=== PATIENT | male | born 1960 | race Caucasian/White ===

== ENCOUNTER → 2019-10-17 09:23 | Outpatient (CLI) | payer MEDICARE, MEDICAID, SELFPAY ==
--- NOTE | 2019-10-17 09:34 | EKG12_ITS ---
Test Reason : PRE OP Blood Pressure : / mmHG Vent. Rate : 054 BPM Atrial Rate : 042 BPM P-R Int : 000 ms QRS Dur : 100 ms QT Int : 466 ms P-R-T Axes : 000 072 056 degrees QTc Int : 441 ms Sinus rhythm Nonspecific ST and T wave abnormality Abnormal ECG Confirmed by KOKO COY, CHEYANNE ([id number]), editor city TORI CARLTON ([id number] on 10/18/2019 10:28:48 AM Referred By: Donell Chavez Confirmed By:RODGER SUTHERLAND MD
== END ==
PROVIDERS: Family Provider Family Medicine; PCP Family Medicine; Referring Provider Otolaryngology; Visit Provider Otolaryngology
DX: C44.212 Basal cell carcinoma of skin of right ear and external auricular canal (principal)
CPT/HCPCS: 93005

== ENCOUNTER → 2023-03-23 | Outpatient (CLI) | payer MEDICARE, MEDICAID, SELFPAY | END | disposition home or self-care (01) | LOC: LAB 03-29 13:08 | PROVIDERS: PCP Family Medicine; Referring Provider Internal Medicine Hematology & Oncology; Visit Provider Internal Medicine Hematology & Oncology | DX: D64.9 Anemia, unspecified (principal) | CPT/HCPCS: 86850; 86900; 86901; 86920; 86922 ==

== ENCOUNTER 2023-10-07 17:13 | Inpatient (IN) | payer MEDICARE, MEDICAID, SELFPAY ==
[2023-10-07 17:15] VITALS: BP 150/59; PULSE 60; RESP 16; TEMP 36.6; O2SAT 100; BMI 21.1
--- NOTE | 2023-10-07 17:54 | EX.ED.DYSGE1 ---
HPI History of Present Illness Chief Complaint: Weakness Informant: patient Onset/Context/Timing Onset: Days Context: Gradual Onset Timing: Continuous Quality: Weakness Location: Generalized Worsened by: Nothing Relieved by: Nothing Narrative Narrative: Presents with generalized weakness that has been getting worse over the past few days. 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 Patient has had 2 doses of radiation treatment. The second dose was just a few days ago. Patient states he has not been wanting to eat or drink since that time. Patient admits to some pain in his neck and back. Patient states he feels weak all over. Patient denies any nausea or vomiting. Patient denies any fevers or chills. Patient denies any chest pain or shortness of breath. [facility] Medical History (Updated 10/07/23 @ 19:[address] Santos Dela Cruz DO) Colon cancer Prostate cancer Home Medications cholecalciferol (vitamin D3) 50 mcg (2,000 unit) capsule 50 mcg PO DAILY 10/07/23 [History Last Taken 10/07/23] gabapentin 300 mg capsule 900 mg PO DAILY 10/07/23 [History Last Taken 10/06/23] omeprazole 20 mg capsule,delayed release 20 mg PO DAILY 10/07/23 [History Last Taken Unknown] ondansetron 8 mg disintegrating tablet 8 mg PO Q12H PRN nausea 10/07/23 [History Last Taken Unknown] rosuvastatin 20 mg tablet 20 mg PO QHS 10/07/23 [History Last Taken 10/06/23] vibegron 75 mg tablet (Gemtesa) 75 mg PO QHS 10/07/23 [History Last Taken Unknown] Allergy/AdvReac Type Severity Reaction Status Date / Time codeine Allergy Mild Vomiting Verified 10/07/23 17:14 Surgical History no surgical history no surgical history Social History Smoking Status: Former smoker ROS ROS ED Constitutional Constitutional ED: Denies chills or fever(s) Eyes Eyes: Denies blurry vision or change in vision ENT ENT ED: Denies rhinorrhea or sore throat Cardiovascular Cardiovascular: Denies chest pain or palpitations Respiratory/Chest Respiratory/Chest: Denies cough or dyspnea Gastrointestinal Gastrointestinal: Denies nausea or vomiting Genitourinary Genitourinary ED: Denies dysuria or hematuria Musculoskeletal Musculoskeletal: Reports back pain and neck pain Integumentary Denies abscess or rash Neurologic Neurologic: Reports weakness; Denies headache(s) Allergic/Immunologic Allergic/Immunologic ED: Denies mouth swelling or urticaria EXAM Physical Exam Const Vital Signs: 10/07/23 17:15 10/07/23 17:18 Temperature 97.9 F Temperature Source Temporal Pulse Rate 60 Respiratory Rate 16 Respiratory Effort Normal Non-Labored Respiratory Pattern Normal Blood Pressure 150/59 H Blood Pressure Mean 89 Pulse Ox 100 Oxygen Delivery Method Room Air Positive well developed General Appearance ED: well developed and NAD HEENT Reports dry mucous membranes Mouth ED: Yes dry mucous membranes Mouth: dry mucous membranes Neck supple and no JVD Resp normal respiratory effort and clear to auscultation bilaterally Cardio regular rate and regular rhythm GI non-tender and non-distended Palpation: soft Extremity General Extremety ED: Negative for edema or tenderness General Extremity: Negative for edema Neuro oriented x3, CN's II-XII intact bilaterally and no sensory deficits noted Sensorium / Orientation: alert Motor Exam: strength 5/5 throughout Psych mental status grossly normal MDM MDM MDM Narrative Medical decision making narrative: Differential diagnosis includes dehydration, electrolyte abnormality, radiation side effect, anemia, and infection. Chest x-ray will be obtained to assess for pneumonia and pneumothorax. EKG will be obtained to assess for cardiac dysrhythmia and cardiac ischemia. CBC will be obtained to assess for leukocytosis and anemia. Basic metabolic profile will be obtained to assess for electrolyte abnormality and renal function. High-sensitivity troponin will be obtained to assess for cardiac ischemia. Urinalysis will be obtained to assess for urinary tract infection. COVID-19 rapid antigen will be obtained to assess for COVID-19 infection. Influenza A and influenza B antigens will be obtained to assess for influenza infection. Lab Data Attestation: I reviewed the patient's lab results. Lab results narrative: CBC was reviewed. White blood cell count was 1.9. Hemoglobin was 7.7 and hematocrit was 24.4. Platelets were 48. PT with INR and PTT were reviewed. Pro time was 17.3 and INR is 1.4. PTT was 42.9. Basic metabolic profile was reviewed. Sodium was 147 and chloride was 126. CO2 was low at 17. BUN was 33 and creatinine was 1.79. Lactate was reviewed and was normal at 1.4. High-sensitivity troponin was reviewed and was normal at 15. Urinalysis was reviewed. Leukocyte esterase was 500 with greater than 100 white blood cells and 2+ bacteria. COVID-19 rapid antigen was reviewed and was negative. Influenza A and influenza B antigens were reviewed and were negative. Labs: Laboratory Results - last 24 hr 10/07/23 10/07/23 18:10 18:25 WBC 1.9 L RBC 2.39 L Hgb 7.7 L Hct 24.4 L MCV 102.1 H MCH 32.2 H MCHC 31.6 L RDW Std Deviation 61.6 H RDW Coeff of Carlos 16.8 H Plt Count 48 L* MPV 11.2 Immature Gran % (Auto) 1.100 H Neut % (Auto) 44.1 L Lymph % (Auto) 39.4 [place] % (Auto) 15.4 H Eos % (Auto) 0.0 Baso % (Auto) 0.0 Absolute Neuts (auto) 0.8 L Absolute Lymphs (auto) 0.74 L Nucleated RBC % 1.1 Differential Comment SCANNED Diff Path Review February foll Platelet Estimate MKD SEP PT 17.3 H INR 1.4 APTT 42.9 H Sodium 147 H Potassium 3.7 Chloride 126 H Carbon Dioxide 17.0 L Anion Gap 4 L BUN 33 H Creatinine 1.79 H Estim Creat Clear Calc 38.27 Est GFR (MDRD) Af Amer 49 L Est GFR (MDRD) Non-Af 41 L BUN/Creatinine Ratio 18.4 Glucose 142 H Lactic Acid 1.4 Calcium 8.1 L Troponin I High Sens 15 Urine Color Yellow Urine Clarity Clear Urine pH 6.0 Ur Specific [place] 1.015 Urine Protein 100 H Urine Glucose (UA) Normal Urine Ketones Negative Urine Occult Blood 150 H Urine Nitrite Negative Urine Bilirubin Negative Urine Urobilinogen 4 H Ur Leukocyte Esterase 500 H Urine RBC 0 SEEN Urine WBC >100 SEEN Ur Squamous Epith Cells 0 SEEN Urine Bacteria 2+ Urine Mucus 0 SEEN Radiography Diagnostic Testing: Clinical Impression(s) from Imaging Studies Chest X-Ray 10/07/23 18:31 IMPRESSION: Normal x-ray examination of the chest. Electronically Signed: Keith Ceja MD at 19:03 EST , Portable 1 view chest x-ray was obtained. On my independent interpretation, lung lazcano are clear. There is normal cardiac silhouette. Bony thorax is normal. There is no acute process noted. Radiologist also interpreted the x-ray and agrees. EKG Initial EKG: Attestation: I personally reviewed and interpreted this EKG as follows: Interpretation: Sinus Rhythm (With first-degree AV block with a rate of 66) Comments: EKG was obtained. On my independent interpretation, it shows normal sinus rhythm with first-degree AV block with a rate of 66. UT interval was prolonged at approximately 240 ms. QRS interval was within normal limits. QTc interval was within normal limits. [place] was normal. There are nonspecific ST-T wave changes noted in leads V2 and V3. Prior EKG tracings: available for review Prior: Unchanged (10/17/2019) Treatment and Re-Evaluation :: Patient was given IV fluids. Blood cultures were obtained. Urine culture was obtained. Patient was started on Zosyn. Case was discussed with the hospitalist. She will admit the patient to her service. Patient and family understood and were agreeable with the plan. All questions were answered. Discharge Plan Dx/Rx/DC Orders Clinical Impression: Complicated urinary tract infection, Pancytopenia, Dehydration Disposition Disposition: Acute Care Hospital [facility]
--- NOTE | 2023-10-07 18:00 | EKG12_ITS ---
Test Reason : Blood Pressure : / mmHG Vent. Rate : 066 BPM Atrial Rate : 000 BPM P-R Int : 000 ms QRS Dur : 082 ms QT Int : 436 ms P-R-T Axes : 000 048 -69 degrees QTc Int : 457 ms Accelerated Junctional rhythm ST & T wave abnormality, consider anterior ischemia Abnormal ECG Confirmed by BANDAR COY, MARJAN ([id number]), metropolitan editor AMI VILLEGAS ([id number]) on 10/09/2023 1:18:53 PM Referred By: Confirmed By:MARJAN PORTILLO MD
[2023-10-07] MEDS: Ondansetron 4 MG/2 ML Vial IV (18:18)
[2023-10-07] MEDS: 0.9% Normal Saline (1000mL) 1,000 ML 1000 ML IV (18:18)
[2023-10-07 18:21] LABS: Absolute Lymphocyte Count 0.74 X10^3/uL (0.83-4.51); Absolute Neutrophil Count 0.8 X10^3/uL (2.0-7.7); Hematocrit 24.4 % (40-54); Hemoglobin 7.7 g/dL (13.0-16.5); Lymphocyte # 0.74 X10^3/ul (0.83-4.51); Lymphocyte % 39.4 % (19-41); Mean Corp Hgb Conc 31.6 g/dL (32-36); Mean Corpuscular Hgb 32.2 pg (27.0-32.0); Mean Corpuscular Volume 102.1 fL (80-94); Mean Platelet Vol. 11.2 fl (6.2-12.0); Monocyte# 0.29 X10^3/uL; Monocyte% 15.4 % (0-10); NRBC Flagged by Analyzer 1.1 % (0-5); Neutrophil # 0.83 X10^3/uL (2.7-7.7); Neutrophil % 44.1 % (47-70); POSITIVE COUNT YES; POSITIVE DIFFERENTIAL YES; RBC Distribution Width CV 16.8 % (11.6-14.6); RBC Distribution Width SD 61.6 fl (35.1-43.9); Red Blood Count 2.39 M/mm3 (4.6-6.2); White Blood Count 1.9 K/mm3 (4.4-11.0)
[2023-10-07 18:27] LABS: International Normalized Ratio 1.4; Prothrombin Time (Protime)PT. 17.3 SECONDS (11.7-14.9)
[2023-10-07 18:28] LABS: Partial Thromboplast Time 42.9 Seconds (24.1-36.2)
[2023-10-07 18:29] LABS: Differential Indicated SCAN CRITERIA MET; Platelet Count 48 K/mm3 (150-450)
--- NOTE | 2023-10-07 18:31 | RAD_ITS ---
STUDY: X-RAY CHEST REASON FOR EXAM: Male, 63 years old. Weakness TECHNIQUE: Single AP portable view of the chest. COMPARISON: None. FINDINGS: The lungs are clear and expanded. There is no demonstrated pleural abnormality. Normal size heart. Normal mediastinum and twila. Normal visualized pulmonary arteries. Normal visualized aortic arch and descending thoracic aorta. Normal visualized thoracic spine. Normal visualized ribs, clavicles, and shoulders. There is no demonstrated abnormality of the visualized soft tissue structures of the upper abdomen. RAD/Chest 1 View (Portable) IMPRESSION: Normal x-ray examination of the chest. Electronically Signed: Keith Ceja MD at 19:03 EST ,
[2023-10-07 18:35] LABS: Mucous, Urine 0 SEEN /hpf (<or=2+); Red Blood Cells-Urine 0 SEEN /hpf (0-5); Squamous Epithelial Cells - UA 0 SEEN /hpf (0-5)
[2023-10-07 18:40] LABS: Color, Urine Yellow (Yellow); Glucose, Dipstick Normal (Normal); Ketone-Dipstick Negative (Negative); Leukocyte Esterase-Dipstick 500 /ul (Negative); Nitrite-Dipstick Negative (Negative); Occult Blood-Urine 150 /ul (Negative); Protein-Dipstick 100 mg/dl (Negative); Specific Gravity, Urine 1.015 (1.002-1.030); Urine Bilirubin Dipstick Negative (Negative); Urine Clarity Clear (Clear); Urine Urobilinogen 4 mg/dl (Normal)
[2023-10-07 18:42] LABS: Anion Gap 4 (5-15); BUN 33 mg/dL (7-18); BUN/Creat Ratio 18.4 RATIO (10-20); Calcium,Total 8.1 mg/dL (8.5-10.1); Chloride 126 mmol/L (98-107); Creatinine, Serum 1.79 mg/dL (0.70-1.30); EST Glomerular Filtration Rate 41 mL/min (>60); Est Glom Filt Rate - Afr Amer 49 mL/min (>60); Estimated Creatinine Clearance 38.27 ml/min; Glucose 142 mg/dL (74-106); Lactic Acid 1.4 mmol/L (0.4-1.9); Potassium 3.7 mmol/L (3.5-5.1); Sodium Level 147 mmol/L (136-145); Troponin-I HS 15 pg/mL (3.0-78.0)
[2023-10-07 18:47] LABS: Bacteria 2+ /hpf (None Seen); White Blood Cells >100 SEEN /hpf (0-5)
[2023-10-07 19:00] LABS: Differential Comment SCANNED; Platelet Estimate MKD DEC (ADEQ)
[2023-10-07 19:36] VITALS: BP 138/68; PULSE 63; RESP 15; O2SAT 99
[2023-10-07 19:37] VITALS: BP 138/68; PULSE 62; RESP 17; O2SAT 99
--- NOTE | 2023-10-07 20:01 | HP.PCM.HOS_ITS ---
HPI - General General Date of Admission: 10/07/23 Date of Service: 10/07/23 Chief Complaint: Fatigue, weakness. HPI Narrative The patient is a 63 y/o M w/ PMHx: GERD, HLD, Severe protein calorie malnutrition, IDDM with device in place, Hx Colon CA remote s/p chemotherapy, Stage IV metastatic Prostate CA to bone currently on targeted radiation per patient/family report noted to have failed chemotherapy with associated chronic pancytopenia who presents to the [facility] ED on 10/09/23 with history of significant fatigue and malaise worsening over the past 3 days with very poor minimal intake over the last 3 days with reportedly his second dose in his radiation treatments just prior to onset of the symptoms with some generalized discomfort and malaise as well as myalgias with no fever or chills nor any nausea or emesis nor chest pain, cough or dyspnea but given severity of weakness prompted family to bring him in for evaluation. He does state that he has been having significantly foul-smelling urine but no specific dysuria. Workup in the ED included T97.9, heart rate 60, BP 150/59, respiratory rate 16, 100% on room air, CBC with WBC 1.9, hemoglobin 7.7, MCV 102.1, platelet 48 with increased immature granulocytes with ANC 0.8 and lymphopenia concurrently, coags with PT 17.3, INR 1.4, PTT 42.9, BMP with sodium 147, chloride 126, carbon oxide 17, AG 4, BUN/creatinine 33/1.79, glucose 142, lactic acid 1.4, troponin 15, urinalysis with specific remedy 1.015, protein 100, negative ketone, occult blood 150, negative nitrite however leukocyte Estrace 500 with greater than 100 urine RBCs with 2+ urine bacteria, chest x-ray with no acute cardiopulmonary findings, SARS COVID and influenza antigen negative. In the ED patient ministered 1 L normal saline, Zofran 4 mg IV x 1, Zosyn 4.5 g IV x 1. Outside records w/ noted 09/15/2023 CBC with WBC 4.67, hemoglobin 10.6, MCV 99.4, platelets 78 with ANC appropriate at that time, 08/31/2023 CMP with BUN/creatinine 18/1.09 and GFR at that time 76, bilirubin 1.0, AST/ALT 49/18, alk phos 514, glucose 161. PFSH Medical History (Updated 10/07/23 @ 20:[address] Jelly Culp MD) CKD (chronic kidney disease), stage II Colon cancer GERD (gastroesophageal reflux disease) HLD (hyperlipidemia) IDDM (insulin dependent diabetes mellitus) Prostate cancer metastatic to bone Protein calorie malnutrition Home Medications cholecalciferol (vitamin D3) 50 mcg (2,000 unit) capsule 50 mcg PO DAILY 10/07/23 [History Last Taken 10/07/23] gabapentin 300 mg capsule 900 mg PO DAILY 10/07/23 [History Last Taken 10/06/23] omeprazole 20 mg capsule,delayed release 20 mg PO DAILY 10/07/23 [History Last Taken Unknown] ondansetron 8 mg disintegrating tablet 8 mg PO Q12H PRN nausea 10/07/23 [History Last Taken Unknown] rosuvastatin 20 mg tablet 20 mg PO QHS 10/07/23 [History Last Taken 10/06/23] vibegron 75 mg tablet (Gemtesa) 75 mg PO QHS 10/07/23 [History Last Taken Unknown] Allergy/AdvReac Type Severity Reaction Status Date / Time codeine Allergy Mild Vomiting Verified 10/07/23 17:14 Family History (Updated 10/07/23 @ 20:[address] Jelly Culp MD) Father Lung cancer Lymphoma Mother No problems noted. Surgical History (Updated 10/07/23 @ 20:[address] Jelly Culp MD) History of cataract surgery Surgical History no surgical history Social History (Updated 10/07/23 @ 20:[address] Jelly Culp MD) household members: other details: Lives with his mother. Smoking Status: Never smoker alcohol intake: never substance use type: does not use ROS ROS Narrative Admission Review of Systems: CONSTITUTIONAL: No weight loss, fever, chills, + weakness or fatigue. HEENT: Eyes: No visual loss, blurred vision, double vision or yellow sclerae. Ears, Nose, Throat: No hearing loss, sneezing, congestion, runny nose or sore throat. SKIN: + Very staged abrasions, ecchymoses. CARDIOVASCULAR: No chest pain, chest pressure or chest discomfort, palpitations, edema, orthopnea, syncopal events. RESPIRATORY: No shortness of breath, cough or sputum, wheezing, hemoptysis. GASTROINTESTINAL: + anorexia, nausea. No vomiting or diarrhea, abdominal pain, melena, BRBPR. GENITOURINARY: + Foul-smelling urine otherwise no dysuria, frequency, urgency or retention. NEUROLOGICAL: + Severe global weakness. No headache, dizziness, syncope, paral ysis, ataxia, numbness or tingling in the extremities, focal weakness, change in bowel or bladder control, seizure. MUSCULOSKELETAL: + muscle, back pain, joint pain or stiffness. HEMATOLOGIC: + anemia, easy bleeding/bruising. LYMPHATICS: No enlarged nodes. No history of splenectomy. PSYCHIATRIC: No history of depression or anxiety. ENDOCRINOLOGIC: No reports of sweating, cold or heat intolerance. No polyuria or polydipsia. ALLERGIES: No history of asthma, hives, eczema or rhinitis. Vital Signs Vital Signs Vital Signs: 10/07/23 17:15 10/07/23 17:18 10/07/23 19:36 Temperature 97.9 F Temperature Source Temporal Pulse Rate 60 63 Respiratory Rate 16 15 Respiratory Effort Normal Non-Labored Respiratory Pattern Normal Blood Pressure 150/59 H 138/68 H Blood Pressure Mean 89 91 Pulse Ox 100 99 Oxygen Delivery Method Room Air Room Air 10/07/23 19:37 Temperature Temperature Source Pulse Rate 62 Respiratory Rate 17 Respiratory Effort Respiratory Pattern Blood Pressure 138/68 H Blood Pressure Mean 91 Pulse Ox 99 Oxygen Delivery Method Weight Weight: 143 lb 1.28 oz Body Mass Index (BMI) 21.1 Physical Exam Narrative Physical Examination: General: Awake, alert, oriented x 3 and cooperative, seated upright in the ED bed, fatigued appearing. Skin: Normal color, normal turgor, no icterus, no cyanosis except for occasional staged ecchymoses, abrasions.. HEENT: AT/NC, EOMI, PERRLA, dry MM, no carotid bruits or JVD noted. Lungs: Diminished, greater bases, proper effort,, no rales, ronchi or wheezing. Heart: Regular rate and rhythm; no gallop, rub audible. Abdomen: Soft, NTTP, ND, hypoactive BS, no appreciated HSM. Extremities: No cyanosis, clubbing, or edema, obvious muscle and fat loss, deconditioned. Neurological: Patient awake, alert, oriented as noted, cognitive function appears baseline intact; pupils equally reactive to light and accommodation, cranial nerves grossly normal, moving all 4 extremities, no focal deficits, st rength severely globally decreased secondary to acute presentation and underlying comorbidities. Psychiatric: Affect appears flat, fatigued, no acute evidence of depressive or anxiety feelings. Results Lab / Micro Data 10/07/23 18:10 10/07/23 18:10 Labs: Laboratory Results - last 24 hr 10/07/23 18:10: WBC 1.9 L, RBC 2.39 L, Hgb 7.7 L, Hct 24.4 L, MCV 102.1 H, MCH 32.2 H, MCHC 31.6 L, RDW Std Deviation 61.6 H, RDW Coeff of Carlos 16.8 H, Plt Count 48 L*, MPV 11.2, Immature Gran % (Auto) 1.100 H, Neut % (Auto) 44.1 L, Lymph % (Auto) 39.4, [place] % (Auto) 15.4 H, Eos % (Auto) 0.0, Baso % (Auto) 0.0, Absolute Neuts (auto) 0.8 L, Absolute Lymphs (auto) 0.74 L, Nucleated RBC % 1.1, Differential Comment SCANNED, Diff Path Review February, Platelet Estimate MKD DEC, PT 17.3 H, INR 1.4, APTT 42.9 H, Sodium 147 H, Potassium 3.7, Chloride 126 H, Carbon Dioxide 17.0 L, Anion Gap 4 L, BUN 33 H, Creatinine 1.79 H, Estim Creat Clear Calc 38.27, Est GFR (MDRD) Af Amer 49 L, Est GFR (MDRD) Non-Af 41 L, BUN/Creatinine Ratio 18.4, Glucose 142 H, Lactic Acid 1.4, Calcium 8.1 L, Troponin I High Sens 15 10/07/23 18:25: Urine Color Yellow, Urine Clarity Clear, Urine pH 6.0, Ur Specific [place] 1.015, Urine Protein 100 H, Urine Glucose (UA) Normal, Urine Ketones Negative, Urine Occult Blood 150 H, Urine Nitrite Negative, Urine Bilirubin Negative, Urine Urobilinogen 4 H, Ur Leukocyte Esterase 500 H, Urine RBC 0 SEEN, Urine WBC >100 SEEN, Ur Squamous Epith Cells 0 SEEN, Urine Bacteria 2+, Urine Mucus 0 SEEN Micro: Microbiology 10/07/23 18:25 Nasal Secretion SARS-CoV-2 & FLU Antigen (Rapid) - Final Imagaing Radiology Impression Chest X-Ray 10/07/23 18:31 IMPRESSION: Normal x-ray examination of the chest. Electronically Signed: Keith Ceja MD at 19:03 EST , Assessment & Plan Assessment/Plan (1) Complicated urinary tract infection: PLAN: Plan The patient is a 63 y/o M w/ PMHx: GERD, HLD, Severe protein calorie malnutrition, IDDM with device in place, Hx Colon CA remote s/p chemotherapy, Stage IV metastatic Prostate CA to bone currently on targeted radiation per patient/family report noted to have failed chemotherapy with associated chronic pancytopenia who presents to the [facility] ED on 10/09/23 with history of significant fatigue and malaise worsening over the past 3 days with very poor minimal intake over the last 3 days with reportedly his second dose in his radiation treatments just prior to onset of the symptoms with some generalized discomfort and malaise as well as myalgias with no fever or chills nor any nausea or emesis nor chest pain, cough or dyspnea but given severity of weakness prompted family to bring him in for evaluation. #1. Acute Complicated Urinary Tract Infection: Will admit to medical surgical floor, UA upon ED evaluation remarkable, pending UCx, continue IVFs, monitor I/Os, continue IV Zosyn given significant neutropenia and no prior current urine cultures apparent w/ transition as able pending sensitivities and speciation. PT/OT/case management consulted for discharge planning. #2. Acute on chronic anemia, thrombocytopenia, presenting also with leukopenia with pancytopenia likely related with ongoing cancer intervention and underlying cancer process as noted #3: CBC upon presentation with WBC 1.9, hemoglobin 7.4, MCV 102.1 thus macrocytic however recently prior to this 09/15/2023 CBC with MCV at that time 99.4, hemoglobin 10.6, platelets 78 and normal ANC, currently ANC less than 1, will administer Granix and repeat CBC in AM. #3. JOY on Chronic Kidney Disease Stage II per [facility] record review GFR trending: Admission BUN/Cr 33/1.79, baseline renal function most recently prior appears 1.09 on 08/31/23, will hold nephrotoxic regimen, continue to hydrate and obtain CMP in AM. #4. Metastatic stage IV prostate cancer: Patient with significant metastatic disease reportedly to bone, following at the [facility] with recent transition given failure of chemotherapy to potentially some type of experimental radiation injection or dosing with next being the third supposed to occur on 10/19/2023, magnesium and phosphorus levels requested, encourage continued early follow-up and notification to oncology service including clinic main #5. Severe protein calorie malnutrition: Noted per significant muscle and fat loss obvious on evaluation, poor oral intake patterns per discussion with patient and family, nutrition consulted for education and supplementation recommendations. #6. IDDM: Clarifying patient's insulin device, will continue to closely monitor and utilize blood sugar checks if not consistent with hold if any concern for hypoglycemia. #7. History colon cancer: Noted to be remote history status post chemotherapy considered in remission per his report. #8. Hyperlipidemia: We will continue patient on statin therapy, CMP pending in a.m. with outside facility records with most recent noted CMP 08/31/2023 with bilirubin 1.0, ST/ALT 49/18, alk phos 514. #9. GERD: We will continue patient on PPI. #10. DVT prophylaxis: SCDs, defer chemoprophylaxis given current thrombocytopenia, worsened to be cautious. #11. CODE status: Patient HCPOA and living will are not in place but he notes his mother would be his decision maker if necessary. Discussed CODE status at length including difference between FULL code, DNR-CCA and DNR-CC status. Following discussions about the differences in these status, requested DNR-CCA, no intubation status. Advanced Care Planning Face to Face Time: 16 minutes. Charges/Coding Visit Charges Inpatient E&M: 32397 Init Hosp L3 Procedures Hospitalists Procedures: 83711 Advncd Care Plan 30 Min
[2023-10-07 20:13] LABS: Magnesium 2.1 mg/dL (1.6-2.6); Phosphorus 2.6 mg/dL (2.5-4.9)
[2023-10-07] MEDS: Piperacil/Tazobactam 4.5 GM in 0.9% Normal Saline (100mL MB+) 100 ML IV (20:14)
[2023-10-07 21:18] VITALS: BMI 20.1
[2023-10-07 21:33] VITALS: BP 136/63; PULSE 65; RESP 16; TEMP 36.8; O2SAT 99
[2023-10-07] MEDS: TBO-FILGRASTIM 480 MCG/0.8 ML ML SC (21:53)
[2023-10-07] MEDS: Menthol/Lanolin/Calamine/Znox 113 GM Tube 1 APPLIC TOPICAL (21:56)
[2023-10-07] MEDS: Vibegron 75 MG TABLET PO (21:57)
[2023-10-07] MEDS: 0.9% Normal Saline (1000mL) 1,000 ML 125 ML IV (22:06)
[2023-10-08 06:00] VITALS: BMI 20.2
[2023-10-08 06:27] LABS: Absolute Neutrophil Count 1.1 X10^3/uL (2.0-7.7); Basophil# 0.01 X10^3/uL; Basophil% 0.5 % (0-1); Hemoglobin 9.6 g/dL (13.0-16.5); Lymphocyte % 33.3 % (19-41); Mean Corpuscular Hgb 31.2 pg (27.0-32.0); Mean Corpuscular Volume 100.6 fL (80-94); Mean Platelet Vol. 11.2 fl (6.2-12.0); Monocyte# 0.27 X10^3/uL; Monocyte% 12.9 % (0-10); NRBC Flagged by Analyzer 0 % (0-5); Neutrophil # 1.09 X10^3/uL (2.7-7.7); Neutrophil % 51.9 % (47-70); POSITIVE COUNT YES; Platelet Count 57 K/mm3 (150-450); RBC Distribution Width SD 62.6 fl (35.1-43.9); Red Blood Count 3.08 M/mm3 (4.6-6.2); White Blood Count 2.1 K/mm3 (4.4-11.0)
[2023-10-08 06:51] LABS: ALB/GLOB Ratio 0.5 RATIO (0.9-2.4); AST(SGOT) 84 U/L (15-37); Alanine Aminotransfer ALT/SGPT 19 U/L (16-61); Albumin, Serum 2.5 g/dL (3.2-5.0); Alkaline Phosphatase 334 U/L (45-117); Anion Gap 2 (5-15); BUN 32 mg/dL (7-18); BUN/Creat Ratio 20.3 RATIO (10-20); Calcium,Total 8.5 mg/dL (8.5-10.1); Chloride 126 mmol/L (98-107); Creatinine, Serum 1.58 mg/dL (0.70-1.30); EST Glomerular Filtration Rate 47 mL/min (>60); Est Glom Filt Rate - Afr Amer 57 mL/min (>60); Estimated Creatinine Clearance 41.29 ml/min; Globulin 5.3 g/dL (2.2-4.2); Glucose 146 mg/dL (74-106); Protein, Total 7.8 g/dL (6.4-8.2); Sodium Level 148 mmol/L (136-145)
[2023-10-08 07:00] VITALS: BP 132/60; PULSE 63; RESP 20; TEMP 36.9; O2SAT 100
[2023-10-08] MEDS: Piperacil/Tazobactam 3.375 GM in 0.9% Normal Saline (50mL MB+) 50 ML IV ×3 (07:00→22:02)
[2023-10-08] MEDS: 0.9% Normal Saline (1000mL) 1,000 ML 125 ML IV ×3 (07:00→22:02)
[2023-10-08 07:30] LABS: Bedside Glucose 125 mg/dL (74-106)
[2023-10-08] MEDS: Gabapentin 300 MG Capsule 900 MG PO (08:50)
[2023-10-08] MEDS: Glucerna Shake 120 ML LIQUID PO ×2 (08:50→11:42)
[2023-10-08] MEDS: Pantoprazole Sodium 20 MG Tablet PO (08:55)
[2023-10-08 09:09] VITALS: BP 127/64; PULSE 71; RESP 16; TEMP 36.4; O2SAT 99
[2023-10-08 11:31] VITALS: BP 106/56; PULSE 70; RESP 16; TEMP 36.5; O2SAT 99
[2023-10-08 11:39] LABS: Bedside Glucose 144 mg/dL (74-106)
--- NOTE | 2023-10-08 14:07 | PCM.PN.HOSP ---
Reason for Visit Reason for Visit: Diagnoses Urinary tract infection, site not specified (10/07/23) Subjective Subjective Patient seen at bedside this morning. Sitting in bedside chair, appears very fatigued, answering questions appropriately but with fairly short responses, no acute distress. Patient appears chronically ill at baseline. States that today he feels about the same as yesterday. Has not eaten anything yet this morning. Denies any acute pain or discomfort at this time. No other acute concerns currently. Objective Data Objective Data Vital Signs: Vital Signs Temp Pulse Resp BP Pulse Ox O2 Del Method 97.7 F L 70 16 106/56 L 99 Room Air 10/08/23 11:31 10/08/23 11:31 10/08/23 11:31 10/08/23 11:31 10/08/23 11:31 10/08/23 13:33 Oxygen Delivery Method Room Air Weight: 61.8 kg Body Mass Index (BMI) 20.2 Intake & Output: Intake and Output for Last 24 Hours 10/06/23 10/07/23 10/08/23 23:59 23:59 23:59 Intake Total 1100 / 1100 1974 Output Total 1100 / 1100 Balance 1100 / 1100 875 / 875 Medical Nutrition Assessment Dietitian: Malnutrition Criteria Met Start: 10/08/23 12:24 Freq: Status: Active Protocol: Document 10/08/23 12:25 RMA (Rec: 10/08/23 12:25 RMA [id number]) Nutrition Malnutrition Evidence of Malnutrition Exists Yes Malnutrition (severe): Chronic Evidenced By Suboptimal Energy Intake ( Severe),Weight Loss (Severe), Physical Changes (Severe) Clinical Problem Chronic Disease or Condition Related Malnutrition Etiology Severe protein-calorie malnutrition in the context of chronic disease related to inadequate oral intake and increased energy expenditure Signs/Symptoms as evidenced by ~22% unintentional weight loss x past 1 year, PO meeting less than 50% estimated nutrition needs x 6-12 months, BMI 20.1 and severe muscle wasting/fat depletion in the face, orbital , temporal region and clavicle Status Active Problem Recommendation Dietitian Recommendations/Changes Will continue liberalized regular diet given signs/ symptoms of malnutrition. Will add 120mL strawberry ensure plus HP TID w/ meals. Will continue 120mL glucerna shake TID w/ medpass as ordered. Additional ONS as tolerated. Consider enteral nutrition support to limit continued energy and protein depletion. Lab / Micro Data 12/17/23 05:49 10/08/23 05:49 Labs: Laboratory Results - last 24 hr 10/07/23 18:10: WBC 1.9 L, RBC 2.39 L, Hgb 7.7 L, Hct 24.4 L, MCV 102.1 H, MCH 32.2 H, MCHC 31.6 L, RDW Std Deviation 61.6 H, RDW Coeff of Carlos 16.8 H, Plt Count 48 L*, MPV 11.2, Immature Gran % (Auto) 1.100 H, Neut % (Auto) 44.1 L, Lymph % (Auto) 39.4, [place] % (Auto) 15.4 H, Eos % (Auto) 0.0, Baso % (Auto) 0.0, Absolute Neuts (auto) 0.8 L, Absolute Lymphs (auto) 0.74 L, Nucleated RBC % 1.1, Differential Comment SCANNED, Diff Path Review February, Platelet Estimate MKD SEP, PT 17.3 H, INR 1.4, APTT 42.9 H, Sodium 147 H, Potassium 3.7, Chloride 126 H, Carbon Dioxide 17.0 L, Anion Gap 4 L, BUN 33 H, Creatinine 1.79 H, Estim Creat Clear Calc 38.27, Est GFR (MDRD) Af Amer 49 L, Est GFR (MDRD) Non-Af 41 L, BUN/Creatinine Ratio 18.4, Glucose 142 H, Lactic Acid 1.4, Calcium 8.1 L, Phosphorus 2.6, Magnesium 2.1, Troponin I High Sens 15 10/07/23 18:25: Urine Color Yellow, Urine Clarity Clear, Urine pH 6.0, Ur Specific [place] 1.015, Urine Protein 100 H, Urine Glucose (UA) Normal, Urine Ketones Negative, Urine Occult Blood 150 H, Urine Nitrite Negative, Urine Bilirubin Negative, Urine Urobilinogen 4 H, Ur Leukocyte Esterase 500 H, Urine RBC 0 SEEN, Urine WBC >100 SEEN, Ur Squamous Epith Cells 0 SEEN, Urine Bacteria 2+, Urine Mucus 0 SEEN 10/08/23 05:49: WBC 2.1 L, RBC 3.08 L, Hgb 9.6 L, Hct 31.0 L, MCV 100.6 H, MCH 31.2, MCHC 31.0 L, RDW Std Deviation 62.6 H, RDW Coeff of Carlos 17.0 H, Plt Count 57 L, MPV 11.2, Immature Gran % (Auto) 1.400 H, Neut % (Auto) 51.9, Lymph % (Auto) 33.3, [place] % (Auto) 12.9 H, Eos % (Auto) 0.0, Baso % (Auto) 0.5, Absolute Neuts (auto) 1.1 L, Absolute Lymphs (auto) 0.70 L, Nucleated RBC % 0, Sodium 148 H, Potassium 4.0, Chloride 126 H, Carbon Dioxide 20.0 L, Anion Gap 2 L, BUN 32 H, Creatinine 1.58 H, Estim Creat Clear Calc 41.29, Est GFR (MDRD) Af Amer 57 L, Est GFR (MDRD) Non-Af 47 L, BUN/Creatinine Ratio 20.3 H, Glucose 146 H, Calcium 8.5, Total Bilirubin 1.80 H, AST 84 H, ALT 19, Alkaline Phosphatase 334 H, Total Protein 7.8, Albumin 2.5 L, Globulin 5.3 H, Albumin/Globulin Ratio 0.5 L 10/08/23 06:48: POC Glucose 125 H 10/08/23 11:11: POC Glucose 144 H Micro: Microbiology 10/07/23 18:25 Nasal Secretion SARS-CoV-2 & FLU Antigen (Rapid) - Final Radiography Diagnostic Testing: Radiology Impression Chest X-Ray 10/07/23 18:31 IMPRESSION: Normal x-ray examination of the chest. Electronically Signed: Keith Ceja MD at 19:03 EST , Physical Exam Const alert, oriented x3 and no apparent distress Constitutional Narrative: Fatigued appearing, chronically ill-appearing, sitting comfortably in bedside chair, conversing normally, no acute distress. General Appearance: cooperative and comfortable HEENT normocephalic, head/scalp atraumatic, hearing grossly normal bilaterally, nasal mucous membranes and turbinates normal and moist oral mucous membranes Eyes PERRL, EOMs intact bilaterally and conjunctivae normal Neck full ROM, no lymphadenopathy and supple Lymph Lymphatic: no lymphadenopathy noted Chest inspection of chest normal Resp normal respiratory effort, normal air movement, no use of accessory muscles and clear to auscultation bilaterally Cardio regular rate, regular rhythm, no murmurs and peripheral pulses 2+ throughout GI normal to inspection, nondistended, normoactive bowel sounds, soft to palpation, non-tender and non-distended Back/Spine normal ROM Extremity normal to inspection, full ROM and no pedal edema Skin no rashes or lesions noted Neuro moves all extremities and no focal motor deficits Speech: speech normal Psych mental status grossly normal Assessment & Plan Assessment/Plan (1) Complicated urinary tract infection: (2) Pancytopenia: (3) Debility: PLAN: Plan Patient is a 63-year-old male who presented to [facility] ED on 10/07/2023 with worsening fatigue and malaise. 1. Acute complicated UTI Patient reported foul-smelling urine prior to admission, no dysuria. Denies history of urinary retention. UA on admit showed 500 leukocyte esterase, negative nitrates, greater than 100 WBCs, 2+ bacteria. Urine cultures, blood cultures pending. ? Continue IV Zosyn. Renal/bladder ultrasound ordered. Follow-up cultures. Monitor urine output. 2. Acute on chronic pancytopenia, improving Known history of pancytopenia secondary to previous chemotherapy. Last outpatient labs on 09/15/2023 showed hemoglobin 10.6, platelets 78, normal ANC. Hemoglobin 7.7, WBC 1.9, ANC less than 1, platelets 48 on admit. ? Given dose of Granix on admit. All cell counts improved on labs on 10/08. Continue to monitor daily labs closely. 3. JOY on CKD stage II, improving Per [facility] records, most recent creatinine 1.09 on 08/31/2023. Creatinine 1.79, BUN 33 on admit. Suspected prerenal in setting of poor p.o. intake due to infection. Cannot rule out postobstructive. S/p 1 L normal saline in the ED. ? Creatinine improving on 10/08. Renal ultrasound ordered as noted above. Monitor urine output. Avoid nephrotoxins. Encourage p.o. intake. 4. Metastatic stage IV prostate cancer, chronic pain Patient with significant metastatic disease reportedly to bone. Following at [facility]. Recently transitioned to some type of experimental radiation therapy after failing chemotherapy due to pancytopenia. Has received 2 doses of radiation, third dose planned for 10/19/2023. ? No need for oncology involvement here at this time. Encouraged close outpatient follow-up. 5. Severe protein calorie malnutrition Noted for significant muscle and fat loss obvious on evaluation, poor oral intake patterns per discussion with patient and family. ? Nutrition consulted. 6. Debility Secondary to metastatic cancer and acutely worsened given infection as noted above. ? PT/OT/case management consulted. Chronic medical conditions: ? Hyperlipidemia: Continue home statin. ? GERD: Continue home PPI. DVT prophylaxis: SCDs CODE STATUS: DNR CCA, DNI Expected disposition: TBD Total clinical time spent by myself addressing the patient's medical issues, reviewing all the data, and collaborating with patient's care team: 35 minutes. Charges/Coding Visit Charges Inpatient E&M: 17314 Subs Hosp L2
[2023-10-08 15:28] VITALS: BP 108/55; PULSE 63; RESP 16; TEMP 36.4; O2SAT 99
[2023-10-08 16:35] LABS: Bedside Glucose 137 mg/dL (74-106)
[2023-10-08] MEDS: Menthol/Lanolin/Calamine/Znox 113 GM Tube 1 APPLIC TOPICAL ×2 (17:44→22:08)
[2023-10-08 22:00] VITALS: BP 118/62; PULSE 64; RESP 16; TEMP 36.6; O2SAT 97
[2023-10-08] MEDS: Vibegron 75 MG TABLET PO (22:06)
[2023-10-08 22:27] LABS: Bedside Glucose 107 mg/dL (74-106)
[2023-10-09 02:38] VITALS: BP 123/62; PULSE 68; RESP 18; TEMP 37; O2SAT 96
[2023-10-09] MEDS: Piperacil/Tazobactam 3.375 GM in 0.9% Normal Saline (50mL MB+) 50 ML IV ×3 (04:33→20:38)
[2023-10-09] MEDS: 0.9% Normal Saline (1000mL) 1,000 ML 125 ML IV ×3 (04:33→20:38)
[2023-10-09 06:00] VITALS: BMI 20.6
--- NOTE | 2023-10-09 06:00 | US_ITS ---
STUDY: RENAL ULTRASOUND - COMPLETE REASON FOR EXAM: Male, 63 years old. Elevated BUN and creatinine TECHNIQUE: Ultrasound evaluation of the kidneys was performed with real-time and static ward-scale imaging. COMPARISON: None. FINDINGS: RIGHT KIDNEY: Normal location of the right kidney, which is normal in size. The right kidney measures 12.5 x 6.2 x 6.2 cm. There is a normal cortex of the right kidney. The renal cortex measures 1.2 cm. There is no right renal mass or cyst. There are no right renal calculi. There is no right hydronephrosis. DISTAL RIGHT URETER: There is non-visualization of the distal right ureter. There is no demonstrated right ureterovesical junction calculus. There is a visualized right ureteral jet. LEFT KIDNEY: Normal location of the left kidney, which is normal in size. The left kidney measures 12.0 x 5.6 x 6.3 cm. There is a normal cortex of the left kidney. The renal cortex measures 1.3 cm. There are 2 separate simple cysts both measuring 1.4 cm. There are no left renal calculi. There is no left hydronephrosis. DISTAL LEFT URETER: There is non-visualization of the distal left ureter. There is no demonstrated left ureterovesical junction calculus. There is a visualized left ureteral jet. AORTA: There is no elongation or tortuosity of the abdominal aorta. I.V.C.: The IVC is patent. BLADDER: The bladder distends normally but contains echogenic material suggesting proteinaceous debris, likely due to inflammation. Please correlate with UA. No significant postvoid residual noted US/Kidney and Bladder IMPRESSION: No obstructive uropathy or suspicious solid renal lesion Simple left renal cysts, no specific follow-up needed Echogenic debris within the bladder suggesting inflammation Electronically Signed: Sha Galdamez MD at 10:43 EST ,
[2023-10-09 06:04] LABS: Bedside Glucose 95 mg/dL (74-106)
--- NOTE | 2023-10-09 08:35 | PN.HOSP_ITS ---
Subjective Subjective Feeling okay. Feels tired. Objective Data Objective Data Vital Signs: Vital Signs Temp Pulse Resp BP Pulse Ox O2 Del Method 37.0 C 68 18 123/62 H 96 Room Air 10/09/23 02:38 10/09/23 02:38 10/09/23 02:38 10/09/23 02:38 10/09/23 02:38 10/09/23 08:32 Oxygen Delivery Method Room Air Weight: 63.2 kg Body Mass Index (BMI) 20.6 Intake & Output: Intake and Output for Last 24 Hours 10/07/23 10/08/23 10/09/23 23:59 23:59 23:59 Intake Total 1100 / 1100 3050 / 3050 864.58 / 864.58 Output Total 1600 / 1600 500 / 500 Balance 1100 / 1100 1450 / 1450 364.58 / 364.58 Medical Nutrition Assessment Dietitian: Malnutrition Criteria Met Start: 10/08/23 12:24 Freq: Status: Active Protocol: Document 10/08/23 12:25 RMA (Rec: 10/08/23 12:25 RMA [id number]) Nutrition Malnutrition Evidence of Malnutrition Exists Yes Malnutrition (severe): Chronic Evidenced By Suboptimal Energy Intake ( Severe),Weight Loss (Severe), Physical Changes (Severe) Clinical Problem Chronic Disease or Condition Related Malnutrition Etiology Severe protein-calorie malnutrition in the context of chronic disease related to inadequate oral intake and increased energy expenditure Signs/Symptoms as evidenced by ~22% unintentional weight loss x past 1 year, PO meeting less than 50% estimated nutrition needs x 6-12 months, BMI 20.1 and severe muscle wasting/fat depletion in the face, orbital , temporal region and clavicle Status Active Problem Recommendation Dietitian Recommendations/Changes Will continue liberalized regular diet given signs/ symptoms of malnutrition. Will add 120mL strawberry ensure plus HP TID w/ meals. Will continue 120mL glucerna shake TID w/ medpass as ordered. Additional ONS as tolerated. Consider enteral nutrition support to limit continued energy and protein depletion. Lab / Micro Data 10/08/23 05:49 10/08/23 05:49 Labs: Laboratory Results - last 24 hr 10/08/23 11:11: POC Glucose 144 H 10/08/23 16:13: POC Glucose 137 H 10/08/23 22:05: POC Glucose 107 H 10/09/23 05:39: POC Glucose 95 Micro: Microbiology 10/07/23 18:25 Nasal Secretion SARS-CoV-2 & FLU Antigen (Rapid) - Final Physical Exam Const alert and no apparent distress Constitutional Narrative: listless. Resp normal respiratory effort, no retractions, no use of accessory muscles and clear to auscultation bilaterally Cardio regular rate, regular rhythm, S1 normal heart sound and S2 normal heart sound GI normal to inspection, nondistended, normoactive bowel sounds, soft to palpation, non-tender and non-distended Extremity normal to inspection Assessment & Plan Assessment/Plan (1) Complicated urinary tract infection: (2) Pancytopenia: (3) Debility: PLAN: Plan 1. Acute complicated UTI * UA on admit showed 500 leukocyte esterase, negative nitrates, greater than 100 WBCs, 2+ bacteria. Pt self catheterizes normally * Urine cultures showing presumptive E. coli, blood cultures pending. * Continue IV pip/tazo. Renal/bladder ultrasound ordered. Follow-up cultures. Monitor urine output. 2. Acute on chronic pancytopenia, improving * Known history of pancytopenia secondary to previous chemotherapy. Last outpatient labs on 09/15/2023 showed hemoglobin 10.6, platelets 78, normal ANC. Hemoglobin 7.7, WBC 1.9, ANC less than 1, platelets 48 on admit. * Given dose of Granix on admit. All cell counts improved on labs on 10/08. Continue to monitor daily labs closely. 3. JOY on CKD stage II, improving * Per [facility] records, most recent creatinine 1.09 on 08/31/2023. Creatinine 1.79, BUN 33 on admit. Suspected prerenal in setting of poor p.o. intake due to infection. Cannot rule out postobstructive. S/p 1 L normal saline in the ED. * Creatinine improving on 10/08. Renal ultrasound ordered as noted above. Monitor urine output. Avoid nephrotoxins. Encourage p.o. intake. 4. Metastatic stage IV prostate cancer, chronic pain * Patient with significant metastatic disease reportedly to bone. Following at [facility]. Recently transitioned to some type of experimental radiation therapy after failing chemotherapy due to pancytopenia. Has received 2 doses of radiation, third dose planned for 10/19/2023. * Follow up with oncology as outpt. 5. Severe protein calorie malnutrition * Noted for significant muscle and fat loss obvious on evaluation, poor oral intake patterns per discussion with patient and family. * Nutrition consulted. 6. Debility * Secondary to metastatic cancer and acutely worsened given infection as noted above. * PT/OT/case management consulted. Chronic medical conditions: ? Hyperlipidemia: Continue home statin. ? GERD: Continue home PPI. DVT prophylaxis: SCDs CODE STATUS: DNR CCA, DNI Expected disposition: TBD Charges/Coding Visit Charges Inpatient E&M: 21304 Subs Hosp L2
[2023-10-09] MEDS: Menthol/Lanolin/Calamine/Znox 113 GM Tube 1 APPLIC TOPICAL ×3 (10:25→20:40)
[2023-10-09] MEDS: Pantoprazole Sodium 20 MG Tablet PO (10:35)
[2023-10-09] MEDS: Senna/Docusate Sodium 1 Tablet 2 TABLET PO (10:35)
[2023-10-09] MEDS: Gabapentin 300 MG Capsule 900 MG PO (10:35)
[2023-10-09] MEDS: Glucerna Shake 120 ML LIQUID PO ×2 (10:37→14:43)
[2023-10-09 11:25] VITALS: BP 96/47; PULSE 72; RESP 16; TEMP 36.7; O2SAT 96
[2023-10-09 12:58] LABS: Bedside Glucose 114 mg/dL (74-106)
[2023-10-09 13:27] LABS: Pathologist Review Reviewed
[2023-10-09] MEDS: 0.9% Normal Saline (250mL Bag) 250 ML 15 ML IV (14:47)
[2023-10-09 14:59] VITALS: BP 124/52; PULSE 64; RESP 16; TEMP 36.6; O2SAT 97
--- NOTE | 2023-10-09 15:00 | CASEMGMT ---
GEOVANNI RUIZ Discharge Planning Assessment Face to Face with patient for initial transition planning/care coordination assessment. GEOVANNI RUIZ introduced self and role at [facility], pt voices understanding. Pt is A&Ox3 resting comfortably in bed and is calm. Care providers, pharmacy, and demographics verified. Admitting dx: UTI, FTT LACE Strata: 1 PCP: Dr. Josefa Rockwell in [place] Specialists:Dr. Daniele Mendoza - Oncology [facility] Preferred Pharmacy:[facility] Insurance: MCR A B, JORGE ALBERT[employer] Prescription Benefit: Yes LNOK: Kristin Hwang (Mother) Living Arrangements:Pt states living in a 2 story home with a stair lift. There is one step to enter the home. Pt lives at home with his mother and states that she helps out with ADL and IADLs. Transportation:Pt reports that his mother is able to drive him. DME:Pt reports using a walker and stair lift. Pt states grab bar, shower chair, and hand-held shower. Pt reports continuous glucose meter and having enough supplies. HHC/SNF: Pt states he has been to [facility] for rehab regarding his chemotherapy history. Pt states signing up for HHC but nobody ever showed up. Pt?s goal/plan: Pt goal is to increase PO intake and gain more strength prior to DC. Pt plans to return home with his mother and stay in his room on the second level of the house. Pt did express concern for his mothers ability to care for him due to her small stature but states wanting to return home. Discussed HHC options with patient and reports he is agreeable. Plan: To be determined. Will follow progress with therapy. Probable Home Health at discharge. Perfecto Stone RN, CM
--- NOTE | 2023-10-09 16:42 | CHAPLAIN ---
Type of Pastoral Visit ___ Initial Visit ___ Follow-up Visit ___ On-call Visit ___ General Patient Visit ___ Spiritual Assessment ___ Family Conference ___ Bereavement ___ Rapid Response ___ Code Blue ___ Other (describe below) Pastoral Care Referral From ___ Patient ___ Family ___ Nurse ___ Physician ___ Top Lift Nailer ___ Business Systems Analyst ___ Other (describe below) Sacrament/Intervention ___ Active listening ___ Anointing ___ Restorationist ___ Bereavement ___ Communion ___ Joann exploration ___ ___ Life review ___ Prayer ___ Reconciliation ___ Sacrament of Sick ___ Supportive presence ___ Wedding ___ Other (describe below) Pastoral Comments patient was sleeping and did not awaken when this obiee report developer entered room
[2023-10-09] MEDS: Vibegron 75 MG TABLET PO (20:40)
[2023-10-09 20:51] VITALS: BP 130/59; PULSE 65; RESP 16; TEMP 36.8; O2SAT 97
[2023-10-10 04:00] VITALS: BP 118/56; PULSE 70; RESP 16; TEMP 36.6; O2SAT 96
[2023-10-10] MEDS: 0.9% Normal Saline (1000mL) 1,000 ML 125 ML IV ×2 (04:40→12:42)
[2023-10-10 04:51] VITALS: BMI 22.1
[2023-10-10] MEDS: Piperacil/Tazobactam 3.375 GM in 0.9% Normal Saline (50mL MB+) 50 ML IV ×3 (05:54→21:56)
[2023-10-10 06:44] LABS: Hematocrit 26.5 % (40-54); Mean Corp Hgb Conc 30.2 g/dL (32-36); Mean Corpuscular Volume 102.7 fL (80-94); Mean Platelet Vol. 10.9 fl (6.2-12.0); POSITIVE COUNT YES; POSITIVE MORPHOLOGY YES; Platelet Count 55 K/mm3 (150-450); RBC Distribution Width CV 17.5 % (11.6-14.6); RBC Distribution Width SD 65.6 fl (35.1-43.9); Red Blood Count 2.58 M/mm3 (4.6-6.2); White Blood Count 2.6 K/mm3 (4.4-11.0)
[2023-10-10 07:17] LABS: Bedside Glucose 84 mg/dL (74-106)
--- NOTE | 2023-10-10 07:27 | PN.HOSP_ITS ---
Subjective Subjective Feels better. Objective Data Objective Data Vital Signs: Vital Signs Temp Pulse Resp BP Pulse Ox O2 Del Method 36.6 C 70 16 118/56 L 96 Room Air 10/10/23 04:00 10/10/23 04:00 10/10/23 04:00 10/10/23 04:00 10/10/23 04:00 10/10/23 04:00 Oxygen Delivery Method Room Air Weight: 67.7 kg Body Mass Index (BMI) 22.1 Intake & Output: Intake and Output for Last 24 Hours 10/08/23 10/09/23 10/10/23 23:59 23:59 23:59 Intake Total 3050 / 3050 3214.41 / 3214.41 1050 / 1050 Output Total 1600 / 1600 1400 / 1400 650 / 650 Balance 1450 / 1450 1814.41 / 1814.41 400 / 400 Medical Nutrition Assessment Dietitian: Malnutrition Criteria Met Start: 10/08/23 12:24 Freq: Status: Active Protocol: Document 10/08/23 12:25 RMA (Rec: 10/08/23 12:25 RMA [id number]) Nutrition Malnutrition Evidence of Malnutrition Exists Yes Malnutrition (severe): Chronic Evidenced By Suboptimal Energy Intake ( Severe),Weight Loss (Severe), Physical Changes (Severe) Clinical Problem Chronic Disease or Condition Related Malnutrition Etiology Severe protein-calorie malnutrition in the context of chronic disease related to inadequate oral intake and increased energy expenditure Signs/Symptoms as evidenced by ~22% unintentional weight loss x past 1 year, PO meeting less than 50% estimated nutrition needs x 6-12 months, BMI 20.1 and severe muscle wasting/fat depletion in the face, orbital , temporal region and clavicle Status Active Problem Recommendation Dietitian Recommendations/Changes Will continue liberalized regular diet given signs/ symptoms of malnutrition. Will add 120mL strawberry ensure plus HP TID w/ meals. Will continue 120mL glucerna shake TID w/ medpass as ordered. Additional ONS as tolerated. Consider enteral nutrition support to limit continued energy and protein depletion. Lab / Micro Data 10/10/23 05:56 10/10/23 05:56 Labs: Laboratory Results - last 24 hr 10/07/23 18:10: Diff Path Review Reviewed 10/09/23 12:32: POC Glucose 114 H 10/10/23 06:57: POC Glucose 84 Micro: Microbiology 10/07/23 20:03 Blood Culture (Wb) - Anticubital Right Blood Culture - Preliminary No growth in 48 hours. 10/07/23 20:03 Blood Culture (Wb) - Anticubital Left Blood Culture - Preliminary No growth in 48 hours. 10/08/23 Unknown Urine, Catheterized Urine Culture - Preliminary Presumptive E. coli 10/07/23 18:25 Nasal Secretion SARS-CoV-2 & FLU Antigen (Rapid) - Final Radiography Diagnostic Testing: Radiology Impression Renal Ultrasound 10/09/23 06:00 IMPRESSION: No obstructive uropathy or suspicious solid renal lesion Simple left renal cysts, no specific follow-up needed Echogenic debris within the bladder suggesting inflammation Electronically Signed: Sha Galdamez MD at 10:43 EST , Physical Exam Const alert and no apparent distress Resp normal respiratory effort, no retractions, no use of accessory muscles and clear to auscultation bilaterally Cardio regular rate, regular rhythm, S1 normal heart sound and S2 normal heart sound GI normal to inspection, nondistended, normoactive bowel sounds, soft to palpation, non-tender and non-distended Neuro Sensorium / Orientation: awake and alert Assessment & Plan Assessment/Plan (1) Complicated urinary tract infection: (2) Pancytopenia: (3) Debility: PLAN: Plan 1. Acute complicated UTI * UA on admit showed 500 leukocyte esterase, negative nitrates, greater than 100 WBCs, 2+ bacteria. Pt self catheterizes normally * Urine cultures showing presumptive E. coli resistant to ampicillin, intermedi ate to Unasyn ESBL negative. Will oil changer to ceftriaxone starting tomorrow., blood cultures pending. * Continue IV pip/tazo. Renal/bladder ultrasound ordered. Follow-up cultures. Monitor urine output. 2. Acute on chronic pancytopenia, improving * Known history of pancytopenia secondary to previous chemotherapy. Last outpatient labs on 09/15/2023 showed hemoglobin 10.6, platelets 78, normal ANC. Hemoglobin 7.7, WBC 1.9, ANC less than 1, platelets 48 on admit. * Given dose of Granix on admit. All cell counts improved on labs on 10/08. Continue to monitor daily labs closely. 3. JOY on CKD stage II, improving * Per [facility] records, most recent creatinine 1.09 on 08/31/2023. Creatinine 1.79, BUN 33 on admit. Suspected prerenal in setting of poor p.o. intake due to infection. Cannot rule out postobstructive. S/p 1 L normal saline in the ED. * Creatinine improving on 10/08. Renal ultrasound ordered as noted above. Monitor urine output. Avoid nephrotoxins. Encourage p.o. intake. 4. Metastatic stage IV prostate cancer, chronic pain * Patient with significant metastatic disease reportedly to bone. Following at [facility]. Recently transitioned to some type of experimental radiation therapy after failing chemotherapy due to pancytopenia. Has received 2 doses of radiation, third dose planned for 10/19/2023. * Follow up with oncology as outpt. 5. Severe protein calorie malnutrition * Noted for significant muscle and fat loss obvious on evaluation, poor oral intake patterns per discussion with patient and family. * Nutrition consulted. 6. Debility * Secondary to metastatic cancer and acutely worsened given infection as noted above. * PT/OT/case management consulted. 7. Hypernatremia * DC normal saline IV fluids. * Change to D5W. Chronic medical conditions: ? Hyperlipidemia: Continue home statin. ? GERD: Continue home PPI. DVT prophylaxis: SCDs CODE STATUS: DNR CCA, DNI Expected disposition: Given debility, planning on SNF. Charges/Coding Visit Charges Inpatient E&M: 45685 Subs Hosp L2
[2023-10-10 07:36] LABS: Anion Gap 3 (5-15); BUN 24 mg/dL (7-18); BUN/Creat Ratio 23.5 RATIO (10-20); Calcium,Total 8.6 mg/dL (8.5-10.1); Chloride 134 mmol/L (98-107); Creatinine, Serum 1.02 mg/dL (0.70-1.30); EST Glomerular Filtration Rate 78 mL/min (>60); Est Glom Filt Rate - Afr Amer 95 mL/min (>60); Estimated Creatinine Clearance 70.06 ml/min; Glucose 91 mg/dL (74-106); Potassium 3.3 mmol/L (3.5-5.1); Sodium Level 154 mmol/L (136-145)
[2023-10-10 07:50] LABS: Differential Indicated MANUAL DIFF
[2023-10-10 07:58] LABS: Lymphocyte 33 % (19-41); Monocyte 14 % (0-10); Neutrophil-Band 5 % (0-5); Neutrophil-Segmented 48 % (47-70); Total Cells Counted 100 (MANUAL DIFF)
[2023-10-10 07:59] LABS: Absolute Lymphocyte Count 0.84 X10^3/uL (0.83-4.51); Absolute Neutrophil Count 1.4 X10^3/uL (2.0-7.7); Lymphocyte # 0.84 X10^3/ul (0.83-4.51); Neutrophil # 1.35 X10^3/uL (2.7-7.7)
[2023-10-10 08:00] LABS: Anisocytosis 2+; Macrocytosis 1+; Platelet Estimate MOD DEC (ADEQ)
[2023-10-10 09:15] VITALS: O2SAT 94
--- NOTE | 2023-10-10 10:14 | CASEMGMT ---
Discharge Planning A list of?SNF providers including quality and resource use data and consistent with the patient's preferred geographic region, medical needs, and insurance network was created in [employer] Guide.? This list was provided to the SW. Claudia Michael Discharge Planning Asst.
[2023-10-10] MEDS: Glucerna Shake 120 ML LIQUID PO ×3 (11:05→17:35)
[2023-10-10] MEDS: Gabapentin 300 MG Capsule 900 MG PO (11:05)
[2023-10-10] MEDS: Menthol/Lanolin/Calamine/Znox 113 GM Tube 1 APPLIC TOPICAL ×4 (11:05→21:56)
[2023-10-10] MEDS: Pantoprazole Sodium 20 MG Tablet PO (11:09)
[2023-10-10 11:32] VITALS: BP 144/67; PULSE 55; RESP 16; TEMP 36.4; O2SAT 100
[2023-10-10 12:25] LABS: Bedside Glucose 92 mg/dL (74-106)
[2023-10-10] MEDS: Dextrose 5%-Water (1000mL Bag) 1,000 ML 75 ML IV (14:25)
--- NOTE | 2023-10-10 15:30 | CASEMGMT ---
Social Work Reviewed therapy notes, noted that patient needing assist and not moving very far with therapy. Met with patient to discuss discharge planning, acknowledging patient's preference to return home but concerned that patient may need more support for strengthening at home-going. Patient sleepy and took some time to arouse for conversation. Patient was polite and participated in conversation, though reporting would really prefer to go home, and to feel that can manage. Patient admits has been to a shelter facility before and prefers not to do this if does not have to. Let patient know that social work remains available for support and assistance should patient change mind and be willing to consider increase of care outside of home health care. This tech writer spoke with slot manager Jacqui who will follow-up with patient regarding home health care and discussions with the patient's mother who would be the patient's supporting caregiver at home. Plan: Tentative plan for return home with home health care, the forensic social worker remains available should patient become agreeable for shelter facility level of care. -WISAM Penn, CLAIMS SORTER
--- NOTE | 2023-10-10 16:17 | CASEMGMT ---
GEOVANNI RUIZ into pt room, pt states he feels he did well with therapy today. Discussed that he ambulated 5 feet. Pt sitting up in chair currently. Pt states that he feels he can go home with [facility]. Patient was provided a list of [facility] providers including quality and resource use data and consistent with the patient?s preferred geographic region, medical needs, and insurance network were provided from the [employer] Guide. Asked pt if we could also discuss this with his mother, pt agreeable and called her and she was on speakerphone. Pt mother expressed concerns of pt returning home if he cannot take care of himself. She states pt needs to be ablet to get oob and go to the bathroom on his own. Pt states I will have to make myself. Pt mother states pt has to walk a long hallway to get to the bathroom. Pt to work with therapy tomorrow and pt will then decide with his mother if he can return home. GEOVANNI RUIZ to follow.
[2023-10-10 17:57] VITALS: BP 128/62; PULSE 55; RESP 17; TEMP 36.4; O2SAT 97
[2023-10-10 18:11] LABS: Bedside Glucose 138 mg/dL (74-106)
[2023-10-10] MEDS: Vibegron 75 MG TABLET PO (21:56)
[2023-10-10 22:01] VITALS: BP 127/64; PULSE 55; RESP 16; TEMP 36.6; O2SAT 98
[2023-10-10 23:02] LABS: Bedside Glucose 132 mg/dL (74-106)
[2023-10-11 02:55] VITALS: BP 131/58; PULSE 55; RESP 18; TEMP 36.6; O2SAT 99
[2023-10-11] MEDS: Dextrose 5%-Water (1000mL Bag) 1,000 ML 75 ML IV (05:09)
[2023-10-11 05:18] VITALS: BMI 21.7
[2023-10-11 06:31] LABS: Bedside Glucose 110 mg/dL (74-106)
[2023-10-11 06:44] LABS: Absolute Lymphocyte Count 0.74 X10^3/uL (0.83-4.51); Absolute Neutrophil Count 1.2 X10^3/uL (2.0-7.7); Basophil# 0.02 X10^3/uL; Basophil% 0.9 % (0-1); Eosinophil# 0.03 X10^3/uL; Eosinophils% 1.3 % (0-5); Hematocrit 25.5 % (40-54); Hemoglobin 7.8 g/dL (13.0-16.5); Lymphocyte # 0.74 X10^3/ul (0.83-4.51); Mean Corp Hgb Conc 30.6 g/dL (32-36); Mean Corpuscular Hgb 30.8 pg (27.0-32.0); Mean Corpuscular Volume 100.8 fL (80-94); Mean Platelet Vol. 11.4 fl (6.2-12.0); Monocyte# 0.21 X10^3/uL; Monocyte% 9.4 % (0-10); NRBC Flagged by Analyzer 1.8 % (0-5); Neutrophil # 1.19 X10^3/uL (2.7-7.7); Neutrophil % 53.2 % (47-70); POSITIVE COUNT YES; POSITIVE MORPHOLOGY YES; Platelet Count 55 K/mm3 (150-450); RBC Distribution Width CV 17.3 % (11.6-14.6); RBC Distribution Width SD 63.8 fl (35.1-43.9); Red Blood Count 2.53 M/mm3 (4.6-6.2); White Blood Count 2.2 K/mm3 (4.4-11.0)
[2023-10-11 07:12] LABS: Anion Gap 3 (5-15); BUN 20 mg/dL (7-18); BUN/Creat Ratio 21.1 RATIO (10-20); Calcium,Total 8.7 mg/dL (8.5-10.1); Chloride 127 mmol/L (98-107); Creatinine, Serum 0.95 mg/dL (0.70-1.30); EST Glomerular Filtration Rate 85 mL/min (>60); Est Glom Filt Rate - Afr Amer 103 mL/min (>60); Estimated Creatinine Clearance 73.78 ml/min; Glucose 125 mg/dL (74-106); Potassium 3.3 mmol/L (3.5-5.1); Sodium Level 150 mmol/L (136-145)
[2023-10-11 07:42] LABS: Differential Indicated SCAN CRITERIA MET
[2023-10-11 08:13] LABS: Platelet Estimate MOD DEC (ADEQ)
--- NOTE | 2023-10-11 08:20 | PN.HOSP_ITS ---
Reason for Visit Reason for Visit: Diagnoses Other pancytopenia (10/07/23) Urinary tract infection, site not specified (10/07/23) Other malaise (10/07/23) Subjective Subjective Feels well. No new events. Objective Data Objective Data Vital Signs: Vital Signs Temp Pulse Resp BP Pulse Ox O2 Del Method 36.6 C 55 L 18 131/58 H 99 Room Air 10/11/23 02:55 10/11/23 02:55 10/11/23 02:55 10/11/23 02:55 10/11/23 02:55 10/11/23 02:55 Oxygen Delivery Method Room Air Weight: 66.4 kg Body Mass Index (BMI) 21.7 Intake & Output: Intake and Output for Last 24 Hours 10/09/23 10/10/23 10/11/23 23:59 23:59 23:59 Intake Total 3214.41 / 3214.41 2790.58 / 2790.58 1050 / 1050 Output Total 1400 / 1400 1950 / 1950 300 / 300 Balance 1814.41 / 1814.41 840.58 / 840.58 750 / 750 Medical Nutrition Assessment Dietitian: Malnutrition Criteria Met Start: 10/08/23 12:24 Freq: Status: Active Protocol: Document 10/08/23 12:25 RMA (Rec: 10/08/23 12:25 RMA [id number]) Nutrition Malnutrition Evidence of Malnutrition Exists Yes Malnutrition (severe): Chronic Evidenced By Suboptimal Energy Intake ( Severe),Weight Loss (Severe), Physical Changes (Severe) Clinical Problem Chronic Disease or Condition Related Malnutrition Etiology Severe protein-calorie malnutrition in the context of chronic disease related to inadequate oral intake and increased energy expenditure Signs/Symptoms as evidenced by ~22% unintentional weight loss x past 1 year, PO meeting less than 50% estimated nutrition needs x 6-12 months, BMI 20.1 and severe muscle wasting/fat depletion in the face, orbital , temporal region and clavicle Status Active Problem Recommendation Dietitian Recommendations/Changes Will continue liberalized regular diet given signs/ symptoms of malnutrition. Will add 120mL strawberry ensure plus HP TID w/ meals. Will continue 120mL glucerna shake TID w/ medpass as ordered. Additional ONS as tolerated. Consider enteral nutrition support to limit continued energy and protein depletion. Lab / Micro Data 10/11/23 06:19 10/11/23 06:19 Labs: Laboratory Results - last 24 hr 10/10/23 11:38: POC Glucose 92 10/10/23 17:49: POC Glucose 138 H 10/10/23 21:54: POC Glucose 132 H 10/11/23 05:15: POC Glucose 110 H 10/11/23 06:19: WBC 2.2 L, RBC 2.53 L, Hgb 7.8 L, Hct 25.5 L, MCV 100.8 H, MCH 30.8, MCHC 30.6 L, RDW Std Deviation 63.8 H, RDW Coeff of Carlos 17.3 H, Plt Count 55 L, MPV 11.4, Immature Gran % (Auto) 2.200 H, Neut % (Auto) 53.2, Lymph % (Auto) 33.0, Guadalupe % (Auto) 9.4, Eos % (Auto) 1.3, Baso % (Auto) 0.9, Absolute Neuts (auto) 1.2 L, Absolute Lymphs (auto) 0.74 L, Nucleated RBC % 1.8, Platelet Estimate MOD DEC, Sodium 150 H, Potassium 3.3 L, Chloride 127 H*, Carbon Dioxide 20.0 L, Anion Gap 3 L, BUN 20 H, Creatinine 0.95, Estim Creat Clear Calc 73.78, Est GFR (MDRD) Af Amer 103, Est GFR (MDRD) Non-Af 85, BUN/Creatinine Ratio 21.1 H, Glucose 125 H, Calcium 8.7 Micro: Microbiology 10/08/23 Unknown Urine, Catheterized Urine Culture - Final Presumptive E. coli 10/07/23 20:03 Blood Culture (Wb) - Anticubital Right Blood Culture - Preliminary No growth in 48 hours. 10/07/23 20:03 Blood Culture (Wb) - Anticubital Left Blood Culture - Preliminary No growth in 48 hours. 10/07/23 18:25 Nasal Secretion SARS-CoV-2 & FLU Antigen (Rapid) - Final Physical Exam Const alert and no apparent distress HEENT head/scalp atraumatic and moist oral mucous membranes Resp normal respiratory effort, no retractions, no use of accessory muscles and clear to auscultation bilaterally Cardio regular rate, regular rhythm, S1 normal heart sound and S2 normal heart sound GI normal to inspection, nondistended, normoactive bowel sounds, soft to palpation, non-tender and non-distended Neuro Sensorium / Orientation: awake and alert Assessment & Plan Assessment/Plan (1) Complicated urinary tract infection: (2) Pancytopenia: (3) Debility: PLAN: Plan 1. Acute complicated UTI * UA on admit showed 500 leukocyte esterase, negative nitrates, greater than 100 WBCs, 2+ bacteria. Pt self catheterizes normally * Urine cultures showing presumptive E. coli resistant to ampicillin, intermediate to Unasyn ESBL negative. Will exchange administrator to ceftriaxone starting tomorrow., blood cultures pending. * Continue IV pip/tazo. Renal/bladder ultrasound ordered. Follow-up cultures. Monitor urine output. 2. Acute on chronic pancytopenia, improving * Known history of pancytopenia secondary to previous chemotherapy. Last outpatient labs on 09/15/2023 showed hemoglobin 10.6, platelets 78, normal ANC. Hemoglobin 7.7, WBC 1.9, ANC less than 1, platelets 48 on admit. * Given dose of Granix on admit. All cell counts improved on labs on 10/08. Continue to monitor daily labs closely. 3. JOY on CKD stage II, improving * Per [facility] records, most recent creatinine 1.09 on 08/31/2023. Creatinine 1.79, BUN 33 on admit. Suspected prerenal in setting of poor p.o. intake due to infection. Cannot rule out postobstructive. S/p 1 L normal saline in the ED. * Creatinine improving on 10/08. Renal ultrasound ordered as noted above. Monitor urine output. Avoid nephrotoxins. Encourage p.o. intake. 4. Metastatic stage IV prostate cancer, chronic pain * Patient with significant metastatic disease reportedly to bone. Following at [facility]. Recently transitioned to some type of experime ntal radiation therapy after failing chemotherapy due to pancytopenia. Has received 2 doses of radiation, third dose planned for 10/19/2023. * Follow up with oncology as outpt. 5. Severe protein calorie malnutrition * Noted for significant muscle and fat loss obvious on evaluation, poor oral intake patterns per discussion with patient and family. * Nutrition consulted. 6. Debility * Secondary to metastatic cancer and acutely worsened given infection as noted above. * PT/OT/case management consulted. 7. Hypernatremia * DC normal saline IV fluids. * Change to D5W. Chronic medical conditions: ? Hyperlipidemia: Continue home statin. ? GERD: Continue home PPI. DVT prophylaxis: SCDs CODE STATUS: DNR CCA, DNI Expected disposition: Given debility, planning on SNF. Waiting on facility acceptance. Discussed with the patient's mother and brother at bedside. Are in agreement the patient going to a nursing home facility. Charges/Coding Visit Charges Inpatient E&M: 94196 Subs Hosp L2
--- NOTE | 2023-10-11 10:23 | CASEMGMT ---
Social Work SW met with pt, pt's mother and brother Reese and introduced self and role of SW. Discharge planning discussed and SW reviewed pt's functional ability with therapy. Pt and family feels pt would benefit from short term SNF placement for rehab prior to returning home with his mother. Pt's mother states she is unable to provide assistance and pt will need to be able to care for himself prior to return home. A list of SNF providers including quality and resource use data and consistent with the patient?s preferred geographic region, medical needs, and insurance network were provided from the [employer] Guide. Preferred provider is [facility]. Referral to TCU and no beds are available. Pt and family updated and next choices are [facility]. [facility] 2. [facility]. GUSTAVO assistant manager of operations updated and referrals to be sent. Plan: [facility] vs [facility], pending acceptance NILE Castillo
[2023-10-11] MEDS: Gabapentin 300 MG Capsule 900 MG PO (10:25)
[2023-10-11] MEDS: Pantoprazole Sodium 20 MG Tablet PO (10:25)
[2023-10-11] MEDS: Menthol/Lanolin/Calamine/Znox 113 GM Tube 1 APPLIC TOPICAL ×2 (10:26→14:35)
[2023-10-11] MEDS: Glucerna Shake 120 ML LIQUID PO ×2 (10:26→11:55)
[2023-10-11 10:30] VITALS: BP 118/53; PULSE 57; RESP 17; TEMP 36.4; O2SAT 100
[2023-10-11] MEDS: Ceftriaxone 1 GM/50 ML BAG IV (10:30)
--- NOTE | 2023-10-11 10:44 | CASEMGMT ---
Discharge Planning Referral sent to [facility] via [facility]. [facility] has no open male beds. SW updated. Claudia Michael, Discharge Planning Asst.
[2023-10-11 10:59] LABS: Pathologist Review Reviewed
--- NOTE | 2023-10-11 14:18 | TREXTCAR_ITS ---
Diet Diet Order/Speech Therapy: 10/07/23 21:13 Diet: Regular - General Food consistency:: Regular Liquid Consistency:: Regular/Thin Type of Dietary Supplement:: Ensure Plus High Protein Diet Comments: 120mL strawberry ensure plus HP TID w/ meals Routine Orders/Code Status Code Status: DNRCC-A (no intubation. ) Wound(s) left lu: Wound Type: Abrasion carrie cleft: Wound Type: Pressure Injury Therapies Weight Bearing: Full weight bearing Physical Therapy: Eval and Treat Occupational Therapy: Eval and Treat Problem/Diagnosis (1) Complicated urinary tract infection: Status: Acute Code(s): N39.0 - Urinary tract infection, site not specified (2) Pancytopenia: Status: Acute Code(s): D61.818 - Other pancytopenia (3) Debility: Status: Acute Code(s): R53.81 - Other malaise Plan 1. Acute complicated UTI * UA on admit showed 500 leukocyte esterase, negative nitrates, greater than 100 WBCs, 2+ bacteria. Pt self catheterizes normally * Urine cultures showing presumptive E. coli resistant to ampicillin, intermediate to Unasyn ESBL negative. Will foreign exchange trader to ceftriaxone starting tomorrow., blood cultures pending. * Continue IV pip/tazo. Renal/bladder ultrasound ordered. Follow-up cultures. Monitor urine output. 2. Acute on chronic pancytopenia, improving * Known history of pancytopenia secondary to previous chemotherapy. Last outpatient labs on 09/15/2023 showed hemoglobin 10.6, platelets 78, normal ANC. Hemoglobin 7.7, WBC 1.9, ANC less than 1, platelets 48 on admit. * Given dose of Granix on admit. All cell counts improved on labs on 10/08. Continue to monitor daily labs closely. 3. JOY on CKD stage II, improving * Per [facility] records, most recent creatinine 1.09 on 08/31/2023. Creatinine 1.79, BUN 33 on admit. Suspected prerenal in setting of poor p.o. intake due to infection. Cannot rule out postobstructive. S/p 1 L normal saline in the ED. * Creatinine improving on 10/08. Renal ultrasound ordered as noted above. Monitor urine output. Avoid nephrotoxins. Encourage p.o. intake. 4. Metastatic stage IV prostate cancer, chronic pain * Patient with significant metastatic disease reportedly to bone. Following at [facility]. Recently transitioned to some type of experimental radiation therapy after failing chemotherapy due to pancytopenia. Has received 2 doses of radiation, third dose planned for 10/19/2023. * Follow up with oncology as outpt. 5. Severe protein calorie malnutrition * Noted for significant muscle and fat loss obvious on evaluation, poor oral intake patterns per discussion with patient and family. * Nutrition consulted. 6. Debility * Secondary to metastatic cancer and acutely worsened given infection as noted above. * PT/OT/case management consulted. 7. Hypernatremia * DC normal saline IV fluids. * Change to D5W. Chronic medical conditions: ? Hyperlipidemia: Continue home statin. ? GERD: Continue home PPI. DVT prophylaxis: SCDs CODE STATUS: DNR CCA, DNI Expected disposition: Given debility, planning on SNF. Waiting on facility acceptance. Discussed with the patient's mother and brother at bedside. Are in agreement the patient going to a fdc facility. Allergies/Procedures Done in Hospital Allergies codeine Allergy (Mild, Verified 10/07/23 17:14) Vomiting Type of Care/Length of Stay Estimated LOS: Convalescent Care Less Than 30 days Type of Care Needed: Skilled Rehab Potential: Fair Prognosis: Good Additional Orders/Day of Discharge Day of Discharge: 10/11/23 Dietary and Speech Recommendations Dietitian Recommendations/Changes: Will continue liberalized regular diet given signs/symptoms of malnutrition. Will add 120mL strawberry ensure plus HP TID w/ meals. Will continue 120mL glucerna shake TID w/ medpass as ordered. Additional ONS as tolerated. Consider enteral nutrition support to limit continued energy and protein depletion. Discharge Plan Admission Admit Date/Time: 10/07/23 19:38 Primary Reason for Your Visit: UTI. Attending Provider: Santos Lay Primary Care Provider: Care Physician,No Primary Consulting Providers: Mani Porter; Dhruv Keller Discharge Orders/Prescriptions Prescriptions: New acetaminophen 325 mg Tablet 1,000 mg PO TID PRN PRN (Reason: Fever, pain 1-10/10) Qty: 0 0RF Glucerna 1.2 Carl 0.06-1.2 gram-kcal/mL Liquid 120 ml PO TIDCM Qty: 0 0RF levofloxacin 750 mg tablet 750 mg PO Q24H Qty: 4 0RF Continued gabapentin 300 mg capsule 900 mg PO DAILY rosuvastatin 20 mg tablet 20 mg PO QHS Gemtesa 75 mg tablet 75 mg PO QHS Patient Comments: TAKE 1 TABLET BY MOUTH EVERY DAY FOR 90 DAYS omeprazole 20 mg capsule,delayed release(DR/EC) 20 mg PO DAILY ondansetron 8 mg tablet,disintegrating 8 mg PO Q12H PRN (Reason: nausea) cholecalciferol (vitamin D3) 50 mcg (2,000 unit) capsule 50 mcg PO DAILY Patient Comments: TAKE 1 CAPSULE BY MOUTH EVERY DAY FOR 90 DAYS Referrals / Follow Up: Shamir Moss MD [Non-Staff] - Within 2 Weeks Care Physician,No Primary [Primary Care Provider] - Disposition Disposition (needs filled in before D/C Order can be placed): Custodial Facility
--- NOTE | 2023-10-11 14:25 | DS.PCM_ITS ---
Providers Date of Admission: 10/07/23 Primary Care Physician: Светлана Primary Care Phys Reason For Visit: COMPLICATED UTI, ADULT FTT Diagnosis Discharge Diagnosis (1) Complicated urinary tract infection: Status: Acute Code(s): N39.0 - Urinary tract infection, site not specified (2) Pancytopenia: Status: Acute Code(s): D61.818 - Other pancytopenia (3) Debility: Status: Acute Code(s): R53.81 - Other malaise Plan 1. Acute complicated UTI * UA on admit showed 500 leukocyte esterase, negative nitrates, greater than 100 WBCs, 2+ bacteria. Pt self catheterizes normally * Urine cultures showing presumptive E. coli resistant to ampicillin, intermediate to Unasyn ESBL negative. Will job change crew member to ceftriaxone starting tomorrow., blood cultures pending. * Continue IV pip/tazo. Renal/bladder ultrasound ordered. Follow-up cultures. Monitor urine output. * Discharge with 4 more days of levofloxacin to complete a 7-day course of antibiotics. 2. Acute on chronic pancytopenia, improving * Known history of pancytopenia secondary to previous chemotherapy. Last outpatient labs on 09/15/2023 showed hemoglobin 10.6, platelets 78, normal ANC. Hemoglobin 7.7, WBC 1.9, ANC less than 1, platelets 48 on admit. * Given dose of Granix on admit. All cell counts improved on labs on 10/08. Continue to monitor daily labs closely. 3. JOY on CKD stage II, improving * Per [facility] records, most recent creatinine 1.09 on 08/31/2023. Creatinine 1.79, BUN 33 on admit. Suspected prerenal in setting of poor p.o. intake due to infection. Cannot rule out postobstructive. S/p 1 L normal saline in the ED. * Creatinine improving on 10/08. Renal ultrasound ordered as noted above. Monitor urine output. Avoid nephrotoxins. Encourage p.o. intake. 4. Metastatic stage IV prostate cancer, chronic pain * Patient with significant metastatic disease reportedly to bone. Following at [facility]. Recently transitioned to some type of experimental radiation therapy after failing chemotherapy due to pancytopenia. Has received 2 doses of radiation, third dose planned for 10/19/2023. * Follow up with oncology as outpt. 5. Severe protein calorie malnutrition * Noted for significant muscle and fat loss obvious on evaluation, poor oral intake patterns per discussion with patient and family. * Nutrition consulted. 6. Debility * Secondary to metastatic cancer and acutely worsened given infection as noted above. * PT/OT/case management consulted. 7. Hypernatremia * DC normal saline IV fluids. * Change to D5W. Chronic medical conditions: ? Hyperlipidemia: Continue home statin. ? GERD: Continue home PPI. DVT prophylaxis: SCDs CODE STATUS: DNR CCA, DNI Expected disposition: Given debility, planning on SNF. Waiting on facility acceptance. Discussed with the patient's mother and brother at bedside. Are in agreement the patient going to a alf facility. Medications at Discharge Home Medications cholecalciferol (vitamin D3) 50 mcg (2,000 unit) capsule 50 mcg PO DAILY 10/07/23 gabapentin 300 mg capsule 900 mg PO DAILY 10/07/23 omeprazole 20 mg capsule,delayed release 20 mg PO DAILY 10/07/23 ondansetron 8 mg disintegrating tablet 8 mg PO Q12H PRN nausea 10/07/23 rosuvastatin 20 mg tablet 20 mg PO QHS 10/07/23 vibegron 75 mg tablet (Gemtesa) 75 mg PO QHS 10/07/23 acetaminophen 325 mg tablet 1,000 mg (3.0769 x 325 mg) PO TID PRN PRN Fever, pain 1-10/10 #0 tabs 10/11/23 levofloxacin 750 mg tablet 750 mg PO Q24H #4 tabs 10/11/23 nutrition tx glu intol,lac-free,soy-fiber 0.06 gram-1.2 kcal/mL liquid (Glucerna 1.2 Carl) 120 ml PO TIDCM #0 mL 10/11/23 Hospital Course Operations None Procedures None Summary of Care Provided Minutes Spent on Discharge: 35 Medical Records Data Medical Nutrition Assessment Dietitian: Malnutrition Criteria Met Start: 10/08/23 12:24 Freq: Status: Active Protocol: Document 10/08/23 12:25 RMA (Rec: 10/08/23 12:25 RMA [id number]) Nutrition Malnutrition Evidence of Malnutrition Exists Yes Malnutrition (severe): Chronic Evidenced By Suboptimal Energy Intake ( Severe),Weight Loss (Severe), Physical Changes (Severe) Clinical Problem Chronic Disease or Condition Related Malnutrition Etiology Severe protein-calorie malnutrition in the context of chronic disease related to inadequate oral intake and increased energy expenditure Signs/Symptoms as evidenced by ~22% unintentional weight loss x past 1 year, PO meeting less than 50% estimated nutrition needs x 6-12 months, BMI 20.1 and severe muscle wasting/fat depletion in the face, orbital , temporal region and clavicle Status Active Problem Recommendation Dietitian Recommendations/Changes Will continue liberalized regular diet given signs/ symptoms of malnutrition. Will add 120mL strawberry ensure plus HP TID w/ meals. Will continue 120mL glucerna shake TID w/ medpass as ordered. Additional ONS as tolerated. Consider enteral nutrition support to limit continued energy and protein depletion. Weight / BMI Weight Weight: 66.4 kg Body Mass Index (BMI) 21.7 ABG / Lab / Microbiology Data 10/11/23 06:19 10/11/23 06:19 Laboratory: Laboratory Results - last 24 hr 10/10/23 05:56: Diff Path Review Reviewed 10/10/23 17:49: POC Glucose 138 H 10/10/23 21:54: POC Glucose 132 H 10/11/23 05:15: POC Glucose 110 H 10/11/23 06:19: WBC 2.2 L, RBC 2.53 L, Hgb 7.8 L, Hct 25.5 L, MCV 100.8 H, MCH 30.8, MCHC 30.6 L, RDW Std Deviation 63.8 H, RDW Coeff of Carlos 17.3 H, Plt Count 55 L, MPV 11.4, Immature Gran % (Auto) 2.200 H, Neut % (Auto) 53.2, Lymph % (Auto) 33.0, Gibson % (Auto) 9.4, Eos % (Auto) 1.3, Baso % (Auto) 0.9, Absolute Neuts (auto) 1.2 L, Absolute Lymphs (auto) 0.74 L, Nucleated RBC % 1.8, Platelet Estimate MOD DEC, Sodium 150 H, Potassium 3.3 L, Chloride 127 H*, Carbon Dioxide 20.0 L, Anion Gap 3 L, BUN 20 H, Creatinine 0.95, Estim Creat Clear Calc 73.78, Est GFR (MDRD) Af Amer 103, Est GFR (MDRD) Non-Af 85, BUN/Creatinine Ratio 21.1 H, Glucose 125 H, Calcium 8.7 Microbiology: Microbiology 10/08/23 Unknown Urine, Catheterized Urine Culture - Final Presumptive E. coli 10/07/23 20:03 Blood Culture (Wb) - Anticubital Right Blood Culture - Preliminary No growth in 48 hours. 10/07/23 20:03 Blood Culture (Wb) - Anticubital Left Blood Culture - Preliminary No growth in 48 hours. 10/07/23 18:25 Nasal Secretion SARS-CoV-2 & FLU Antigen (Rapid) - Final Meaningful Use Info Meaningful Use Diagnoses (Choose all that apply): None applicable Discharge Plan Admission Admit Date/Time: 10/07/23 19:38 Primary Reason for Your Visit: UTI. Attending Provider: Santos Lay Primary Care Provider: Care Physician,No Primary Consulting Providers: Mani Porter; Dhruv Keller Discharge Orders/Prescriptions Prescriptions: New acetaminophen 325 mg Tablet 1,000 mg PO TID PRN PRN (Reason: Fever, pain 1-1010) Qty: 0 0RF Glucerna 1.2 Carl 0.06-1.2 gram-kcal/mL Liquid 120 ml PO TIDCM Qty: 0 0RF levofloxacin 750 mg tablet 750 mg PO Q24H Qty: 4 0RF Continued gabapentin 300 mg capsule 900 mg PO DAILY rosuvastatin 20 mg tablet 20 mg PO QHS Gemtesa 75 mg tablet 75 mg PO QHS Patient Comments: TAKE 1 TABLET BY MOUTH EVERY DAY FOR 90 DAYS omeprazole 20 mg capsule,delayed release(DR/EC) 20 mg PO DAILY ondansetron 8 mg tablet,disintegrating 8 mg PO Q12H PRN (Reason: nausea) cholecalciferol (vitamin D3) 50 mcg (2,000 unit) capsule 50 mcg PO DAILY Patient Comments: TAKE 1 CAPSULE BY MOUTH EVERY DAY FOR 90 DAYS Referrals / Follow Up: Shamir Moss MD [Non-Staff] - Within 2 Weeks Care Physician,No Primary [Primary Care Provider] - Disposition Disposition (needs filled in before D/C Order can be placed): Detention Facility Charges/Coding Visit Charges Inpatient E&M: 96335 Disch Hosp >30min
[2023-10-11] MEDS: Potassium Chloride Oral Tablet 20 MEQ 40 MEQ PO (14:42)
--- NOTE | 2023-10-11 15:00 | CASEMGMT ---
Social Work [facility] able [facility] accept pt. Physician updated and pt is ready for discharge. 7000 convalescent form completed in [facility] for admission to SNF. SW met with pt and updated that [facility] has accepted and discharge will be today. Pt is agreeable. SW placed call to pts mother and information relayed. Mother is agreeable to dc plan. Disposition: [facility], skilled level of care under convalescent stay NILE Ortega
--- NOTE | 2023-10-11 15:13 | CHAPLAIN ---
Type of Pastoral Visit ___ Initial Visit ___ Follow-up Visit ___ On-call Visit ___ General Patient Visit ___ Spiritual Assessment ___ Family Conference ___ Bereavement ___ Rapid Response ___ Code Blue ___ Other (describe below) Pastoral Care Referral From ___ Patient ___ Family ___ Nurse ___ Physician ___ Clerical Adjuster ___ Parachute Panel Joiner ___ Other (describe below) Sacrament/Intervention ___ Active listening ___ Anointing ___ Yazdanism ___ Bereavement ___ Communion ___ Joann exploration ___ ___ Life review ___ Prayer ___ Reconciliation ___ Sacrament of Sick ___ Supportive presence ___ Wedding ___ Other (describe below) Pastoral Comments this was third day in a row when a visit was attempted with the patient; the first time today this patient actually opened his eyes and responded to his name; pt states that he is very tired; offer of presence, support, prayer given to patient; pt responds that a prayer would be good; pt closes his eyes and does not open them again during the visit; words of comfort, prayers, and asking for any needs given but pt does not respond and goes back to sleep
--- NOTE | 2023-10-11 15:30 | CASEMGMT ---
Discharge Planning Discharge orders, signed med list, and transport time sent to [facility] via [facility]. [facility] will transport patient by cot at 4p. Nursing and SW updated. Claudia Michael, Discharge Planning Asst.
[2023-10-11 16:22] VITALS: BP 119/63; PULSE 54; RESP 17; TEMP 36.8; O2SAT 98
--- NOTE | 2023-10-11 16:58 | NURSING ---
This nurse tried calling [facility] to give report a few times but no one answered the phone.
[2023-10-11 17:01] LABS: Bedside Glucose 136 mg/dL (74-106)
[2023-10-11 17:01] LABS: Bedside Glucose 123 mg/dL (74-106)
== END 2023-10-11 16:59 | disposition skilled nursing facility (03) | DRG 689 ==
LOC: ED 19:40 → MS3 19:51
PROVIDERS: Hospitalist; Admitting Provider Family Medicine; Emergency Provider Emergency Medicine
DX: N39.0 Urinary tract infection, site not specified (principal); E43 Unspecified severe protein-calorie malnutrition; D61.810 Antineoplastic chemotherapy induced pancytopenia; N17.9 Acute kidney failure, unspecified; C79.51 Secondary malignant neoplasm of bone; E87.0 Hyperosmolality and hypernatremia; B96.20 Unspecified Escherichia coli [E. coli] as the cause of diseases classified elsewhere; E11.22 Type 2 diabetes mellitus with diabetic chronic kidney disease; C61 Malignant neoplasm of prostate; Z79.4 Long term (current) use of insulin; K21.9 Gastro-esophageal reflux disease without esophagitis; E78.5 Hyperlipidemia, unspecified; N18.2 Chronic kidney disease, stage 2 (mild); E86.0 Dehydration; Z11.52 Encounter for screening for COVID-19; R53.81 Other malaise; Z66 Do not resuscitate; Z79.899 Other long term (current) drug therapy; Z87.891 Personal history of nicotine dependence; Z92.21 Personal history of antineoplastic chemotherapy; Z68.21 Body mass index [BMI] 21.0-21.9, adult
CPT/HCPCS: 36415; 71045; 76770; 80048; 80053; 81001; 82962; 83605; 83735; 84100; 84484; 85025; 85610; 85730; 87040; 87086; 87088; 87186; 87428; 93005; 94668; 97110; 97116; 97162; 97166; 97530; 97802; 99252; 99285; J7030; J7050; A4216; G0463; J1447; J2405